=== PATIENT | male | born 1940 | race Caucasian/White ===

== ENCOUNTER 2020-07-25 08:20 | Outpatient (CLI) | payer MEDICARE ==
[~2020-07-25 08:20] MED LIST: ASPI-515 PO; ASPI81TA45 PO; ATEN25TA PO; ATOR40TA78 PO; CLOP75TA PO; MAGN100T PO; MAGN400T26 PO; METO25TA35 PO; MULT-464 PO; REGADENOSON 0.4 MG/5 ML SYRINGE ONE; SIMV40TA20 PO
== END 2020-07-25 23:59 | disposition home or self-care (01) ==
LOC: CFH 08:20
PROVIDERS: ATTEND Internal Medicine Cardiovascular Disease
DX: I21.9 Acute myocardial infarction, unspecified (principal); Z86.73 Personal history of transient ischemic attack (TIA), and cerebral infarction without residual deficits
CPT/HCPCS: 78452; 93017; A9502; J2785

== ENCOUNTER → 2021-01-03 | Outpatient (CLI) | payer MEDICARE ==
[~2021-01-03] MED LIST changes: -ASPI-515 PO; +ASPI-963 PO; -REGADENOSON 0.4 MG/5 ML SYRINGE ONE
== END | disposition home or self-care (01) ==
LOC: CVU 10:49
PROVIDERS: ATTEND Surgery
DX: I65.23 Occlusion and stenosis of bilateral carotid arteries (principal)
CPT/HCPCS: 93880